=== PATIENT | male | born 2005 | race Caucasian/White ===

== ENCOUNTER 2023-11-15 04:52 | Outpatient (CLI) | payer OTHER, SELFPAY ==
[2023-11-15 07:48] LABS: Abs Immature Grans 0.01 10^3/uL (0.0-0.06); Absolute Basophil Count 0.02 10^3/uL (0.0-0.2); Absolute Eosinophil Count 0.11 10^3/uL (0.0-0.7); Absolute Lymphocyte Count 0.86 10^3/uL (1.2-3.4); Absolute Monocyte Count 0.47 10^3/uL (0.1-0.8); Basophils % 0.6 %; Eosinophils % 3.1 %; HCT 44.8 % (40.0-50.0); HGB 14.6 g/dL (13.5-17.5); Immature Grans % 0.3 %; Lymphocytes % 24.1 %; MCH 28.8 pg (27.0-33.0); MCHC 32.6 % (32.0-36.0); MCV 88 fL (80-95); MPV 9.7 fL (8.0-11.0); Monocytes % 13.2 %; Neutrophils % 58.7 %; Platelet Count 202 10^3/uL (130-400); RBC 5.07 10^6/uL (4.36-5.78); RDW 13.7 % (11.8-14.1); RDW-SD 43.8 fL; WBC 3.57 10^3/uL (4.4-10.8)
[2023-11-15 09:34] LABS: ALT 25 U/L (16-63); AST 14 U/L (15-37); Albumin 4.1 g/dL (3.4-5.0); Alkaline Phosphatase 66 U/L (46-116); BUN 9 mg/dL (7-18); Bilirubin, Total 0.9 mg/dL (0.2-1.0); CREATININE 1.1 mg/dL (0.70-1.30); Calcium 9.2 mg/dL (8.5-10.1); Chloride 101 mmol/L (98-107); Estimated GFR 98.56 (mL/min/1.73m2); Glucose 97 mg/dL (74-106); Potassium 3.8 mmol/L (3.5-5.1); Sodium 138 mmol/L (136-145); TSH (W/Ref FT4) 2.08 uIU/mL (0.36-3.74); Total Protein 7.2 g/dL (6.4-8.2); Vitamin D 25 Total 15.3 ng/mL (30-100)
[2023-11-15 17:58] LABS: Estradiol 38 pg/mL (<40)
[2023-11-17 12:56] LABS: IgA 114 mg/dL (85-499); Interpretation (See Note); Tissue Transglutaminase IgA 4.8 CU (<20.0)
[2023-11-22 16:53] LABS: Testosterone, Total 521 ng/dL (240-950)
== END 2023-11-15 04:53 | disposition home or self-care (01) ==
LOC: LBO 04:52
PROVIDERS: PCP Pediatrics; Visit Provider Pediatrics
DX: R53.83 Other fatigue (principal)
CPT/HCPCS: 36415; 80053; 82306; 82784; 83516; 84402; 84403; 82670; 84443; 85025

== ENCOUNTER 2025-04-18 10:20 | Outpatient (REF) | payer OTHER, SELFPAY ==
[2025-04-18 15:12] LABS: Abs Immature Grans 0.01 10^3/uL (0.0-0.06); HCT 45.3 % (40.0-50.0); HGB 15.4 g/dL (13.5-17.5); Immature Grans % 0.2 %; MCH 30.4 pg (27.0-33.0); MCHC 34.0 % (32.0-36.0); MCV 90 fL (80-95); MPV 9.9 fL (8.0-11.0); Platelet Count 264 10^3/uL (130-400); RBC 5.06 10^6/uL (4.36-5.78); RDW 12.8 % (11.8-14.1); RDW-SD 42.2 fL; WBC 4.69 10^3/uL (4.4-10.8)
[2025-04-18 15:29] LABS: TSH 1.28 uIU/mL (0.55-4.78); Vitamin D 25 Total 31 ng/mL (30-100)
[2025-04-18 15:31] LABS: ALT 37 U/L (10-49); AST 25 U/L (<34); Albumin 4.5 g/dL (3.4-5.0); Alkaline Phosphatase 61 U/L (46-116); Anion Gap 8.9 mmol/L (3-11); BUN 14 mg/dL (9-23); Bilirubin, Total 0.50 mg/dL (0.2-1.2); CO2 30.1 mmol/L (20.0-31.0); Calcium 9.4 mg/dL (8.3-10.6); Chloride 105 mmol/L (98-107); Cholesterol 165 mg/dL (<200); Glucose 90 mg/dL (74-106); HDL Cholesterol 53 mg/dL (>40); Potassium 4.3 mmol/L (3.5-5.1); Sodium 144 mmol/L (136-145); Total Protein 7.0 g/dL (5.7-8.2)
[2025-04-25 19:31] LABS: Testosterone, Free 163.5 pg/mL (35.0-155.0)
== END 2025-04-18 10:21 | disposition home or self-care (01) ==
LOC: NCHCN 10:20
PROVIDERS: Visit Provider Family Medicine
DX: Z00.00 Encounter for general adult medical examination without abnormal findings (principal)
CPT/HCPCS: 80053; 80061; 82306; 84402; 84403; 84443; 85025